=== PATIENT | male | born 1980 | race Caucasian/White ===

== ENCOUNTER 2016-12-22 10:39 | Inpatient (IN) | payer SELFPAY ==
[2016-12-22] VITALS (7 sets, daily range): BP systolic 148–157; BP diastolic 88–103
[~2016-12-22] VITALS: Ht 180.3 cm; Wt 122.5 kg
[2016-12-22] MEDS ORDERED: IV NORMAL SALINE 1,000ML 1,000 ML IV ONE ×2 (11:45→14:30)
[2016-12-22 12:27] LABS: HEMATOCRIT 51.2 % (39.0-53.0); HEMOGLOBIN 17.7 g/dL (13.0-17.5); RED BLOOD COUNT 5.65 x10^6/uL (4.30-5.70); RED CELL DISTRIBUTION WIDTH 12.9 % (11.5-14.5); WHITE BLOOD COUNT 13.9 x10^3/uL (4.0-11.0)
[2016-12-22 12:45] LABS: ALBUMIN 4.5 g/dL (3.4-5.0); CALCIUM 9.2 mg/dL (8.5-10.1); CREATININE 2.9 mg/dL (0.7-1.3); POTASSIUM 3.3 mmol/L (3.5-5.1)
[2016-12-22] MEDS ORDERED: ONDANSETRON PF 4 MG/2 ML VIAL. IV ONE (13:00)
[2016-12-22 13:07] LABS: BASO % 0 % (0-3); EOS % 0 % (0-3); HEMATOCRIT 50.5 % (39.0-53.0); HEMOGLOBIN 17.7 g/dL (13.0-17.5); LYMPH # 0.8 x10^3/uL (1.0-4.8); LYMPH % 7 % (24-48); MEAN CORPUSCULAR HEMOGLOBIN 31 pg (25-35); MEAN CORPUSCULAR HGB CONC 35 g/dL (31-37); MEAN CORPUSCULAR VOLUME 90 fL (79-100); MONO # 0.8 x10^3/uL (0.0-1.1); MONO % 7 % (0-9); NEUT % 86 % (31-73); PLATELET COUNT 178 x10^3/uL (140-400); RED BLOOD COUNT 5.62 x10^6/uL (4.30-5.70); RED CELL DISTRIBUTION WIDTH 12.9 % (11.5-14.5); WHITE BLOOD COUNT 11.6 x10^3/uL (4.0-11.0)
--- NOTE | 2016-12-22 13:29 | PHYS DOC ---
Past History Past Medical History: Anxiety, Depression, Hypertension, Other Past Surgical History: No Surgical History Alcohol Use: None Drug Use: Methamphetamine Adult General Chief Complaint Chief Complaint: NAUSEA/VOMITING/DIARRHEA HPI HPI Patient is a 36 year old M who presents with nausea/vomiting/diarrhea. Olvin states that after being released from [facility] 4 days ago he began using her what he called us a significant amount of meth IV. He has had vomiting and/or dry heaves over the past 3 days. He states that he has been extremely sweaty, had palpitations, and feels much more anxiety. He notes decreased urination over the past several days. He has not urinated in the last 18 hours. Review of Systems Review of Systems Constitutional: Negative except history of present illness Eyes: Denies change in visual acuity, redness, or eye pain [] HENT: Denies nasal congestion or sore throat [] Respiratory: Denies cough or shortness of breath [] Cardiovascular: No additional information not addressed in HPI [] GI: Denies abdominal pain, nausea, vomiting, bloody stools or diarrhea [] : Negative except history of present illness Musculoskeletal: Denies back pain or joint pain [] Integument: Denies rash or skin lesions [] Neurologic: Denies headache, focal weakness or sensory changes [] Endocrine: Denies polyuria or polydipsia [] Family History Family History Noncontributory Current Medications Current Medications Current Medications Medications (Trade) Dose Ordered Sig/Daniel Start Time Stop Time Status Last Admin Dose Admin Ondansetron HCl (Zofran) 4 mg 1X ONCE 12/22/16 13:00 12/22/16 13:01 DC 12/22/16 12:50 4 MG Sodium Chloride 1,000 ml @ 1,000 mls/hr 1X ONCE 12/22/16 11:45 12/22/16 12:44 DC 12/22/16 12:45 1,000 MLS/HR Allergies Allergies Allergies Coded Allergies Type Severity Reaction Last Updated Verified No Known Drug Allergies 12/22/16 No Physical Exam Physical Exam Constitutional: Well developed, well nourished, anxious appearing, diaphoretic HENT: Normocephalic, atraumatic, bilateral external ears normal, oropharynx moist, no oral exudates, nose normal. [] Eyes: PERRLA, EOMI, conjunctiva normal, no discharge. [] Neck: Normal range of motion, no tenderness, supple, no stridor. [] Cardiovascular: Tachycardic regular rhythm, no murmur [] Lungs & Thorax: Bilateral breath sounds clear to auscultation [] Abdomen: Bowel sounds normal, soft, no tenderness, no masses, no pulsatile masses. [] Skin: Warm, dry, no erythema, no rash. [] Back: No tenderness, no CVA tenderness. [] Extremities: No tenderness, no cyanosis, no clubbing, ROM intact, no edema. [] Neurologic: Alert and oriented X 3, normal motor function, normal sensory function, no focal deficits noted. [] Psychologic: Affect normal, judgement normal, mood normal. [] Current Patient Data Vital Signs Vital Signs Date Time Temp Pulse Resp B/P (MAP) Pulse Ox O2 Delivery O2 Flow Rate FiO2 12/22/16 10:45 97.6 119 24 97 Room Air Lab Results Laboratory Tests Test 12/22/16 12:15 12/22/16 12:40 White Blood Count 13.9 x10^3/uL (4.0-11.0) H 11.6 x10^3/uL (4.0-11.0) H Red Blood Count 5.65 x10^6/uL (4.30-5.70) 5.62 x10^6/uL (4.30-5.70) Hemoglobin 17.7 g/dL (13.0-17.5) H 17.7 g/dL (13.0-17.5) H Hematocrit 51.2 % (39.0-53.0) 50.5 % (39.0-53.0) Mean Corpuscular Volume 91 fL (79-100) 90 fL (79-100) Mean Corpuscular Hemoglobin 31 pg (25-35) 31 pg (25-35) Mean Corpuscular Hemoglobin Concent 35 g/dL (31-37) 35 g/dL (31-37) Red Cell Distribution Width 12.9 % (11.5-14.5) 12.9 % (11.5-14.5) Platelet Count 169 x10^3/uL (140-400) 178 x10^3/uL (140-400) Sodium Level 131 mmol/L (136-145) L Potassium Level 3.3 mmol/L (3.5-5.1) L Chloride Level 92 mmol/L (98-107) L Carbon Dioxide Level 25 mmol/L (21-32) Anion Gap 14 (6-14) Blood Urea Nitrogen 34 mg/dL (8-26) H Creatinine 2.9 mg/dL (0.7-1.3) H Estimated GFR (Cockcroft-Gault) 25.0 BUN/Creatinine Ratio 12 (6-20) Glucose Level 107 mg/dL (70-99) H Calcium Level 9.2 mg/dL (8.5-10.1) Total Bilirubin 2.0 mg/dL (0.2-1.0) H Aspartate Amino Transferase (AST) 1351 U/L (15-37) H Alanine Aminotransferase (ALT) 460 U/L (16-63) H Alkaline Phosphatase 50 U/L (46-116) Total Protein 9.0 g/dL (6.4-8.2) H Albumin 4.5 g/dL (3.4-5.0) Albumin/Globulin Ratio 1.0 (1.0-1.7) Neutrophils (%) (Auto) 86 % (31-73) H Lymphocytes (%) (Auto) 7 % (24-48) L Monocytes (%) (Auto) 7 % (0-9) Eosinophils (%) (Auto) 0 % (0-3) Basophils (%) (Auto) 0 % (0-3) Neutrophils # (Auto) 10.0 x10^3uL (1.8-7.7) H Lymphocytes # (Auto) 0.8 x10^3/uL (1.0-4.8) L Monocytes # (Auto) 0.8 x10^3/uL (0.0-1.1) Eosinophils # (Auto) 0.0 x10^3/uL (0.0-0.7) Basophils # (Auto) 0.0 x10^3/uL (0.0-0.2) EKG EKG Sinus tach [] Radiology/Procedures Radiology/Procedures [] Course & Med Decision Making Course & Med Decision Making Pertinent Labs and Imaging studies reviewed. (See chart for details) [] Dragon Disclaimer Dragon Disclaimer This chart was dictated in whole or in part using Voice Recognition software in a busy, high-work load, and often noisy Emergency Department environment. It may contain unintended and wholly unrecognized errors or omissions. Departure Departure: Impression: Primary Impression: Rhabdomyolysis Additional Impressions: Acute kidney injury Acute hepatitis C Disposition: ADMITTED INPATIENT Condition: STABLE Referrals: PCP,NO (PCP) Problem Qualifiers Primary Impression: Rhabdomyolysis Rhabdomyolysis type: non-traumatic Qualified Codes: M62.82 - Rhabdomyolysis Additional Impressions: Acute hepatitis C Hepatic coma status: without hepatic coma Qualified Codes: B17.10 - Acute hepatitis C without hepatic coma LACHO KANG MD Dec 22, 2016 13:29
[2016-12-22] MEDS ORDERED: FAMOTIDINE 20 MG TABLET PO ONE (14:15)
[2016-12-22] MEDS ORDERED: RISP1TAB43 PO (14:46)
[2016-12-22] MEDS ORDERED: MIRT30TA PO (14:47)
[2016-12-22] MEDS ORDERED: PROP20TA PO (14:47)
[2016-12-22] MEDS ORDERED: 0.9 % SODIUM CHLORIDE 10 ML DISP.SYRIN. IV PRN (15:15)
[2016-12-22] MEDS ORDERED: ELECTROLYTE (NON-ICU) PROTOCOL MC PRN (15:15)
[2016-12-22] MEDS ORDERED: ONDANSETRON PF 4 MG/2 ML VIAL. IV PRN (15:15)
[2016-12-22] MEDS: IV NORMAL SALINE 1,000ML 1,000 ML IV SCH ×2 (15:24→20:33)
[2016-12-22] MEDS ORDERED: POTASSIUM CHLORIDE 20 MEQ TABLET.ER. PO ONE (15:30)
--- NOTE | 2016-12-22 15:41 | PDOC1 ---
History of Present Illness Reason for Visit: Muscle cramps History of Present Illness Pt states he was shopping at [email or web address] today when he started to have severe muscle spasms, so bad that he thought he was going to be sick. He had to sit down and rest. Pt reports he was in nursing home til about 4 days ago, and while in nursing home he received medications for PTSD including Risperdal, Propranolol, and Remeron. Unfortunately, he was not given any prescriptions when he was released , and he went to abuse methamphetamines instead. He had done this for the past 3 days. He reports he has done this in the past, and it helps but "comes back around tenfold." He states he already feels like the fluids are working, because his muscles feel less crampy. He says he has not urinated since yesterday, even if he tries to force himself. Denies fever, but has had n/v. Denies any recent injuries, muscle or otherwise. Chief Complaint: NAUSEA/VOMITING/DIARRHEA Allergies: Coded Allergies: No Known Drug Allergies (Unverified , 12/22/16) Past Medical History Psych: Other (PTSD) Past Surgical History: No pertinent history Family History: No pertinent hx Past Social History Smoke: No Alcohol: none Drugs: Crystal meth Lives: Alone Review of Systems Review Of Systems Fourteen system , review of systems has been reviewed. See HPI for pertinent positives and negative responses, other monge all other systems are negative, non pertinent or non contributory Constitutional: No: Fever, Chills, Sweats, Weakness, Malaise, Other Eyes: No: Blurry vision, Decreased vision, Double vision, Dry eyes, Excessive tearing, Eye Pain, Itchy Eyes, Loss of vision, Photophobia, Scotomata, Uses contacts, Uses glasses ENT: No: Ear pain, Ear discharge, Nose pain, Nose discharge, Nose congestion, Mouth pain, Mouth swelling, Throat pain, Throat swelling Respiratory: No: Cough, Hemoptysis, Orthopnea, Pleuritic Pain, Shortness of breath, SOB with excertion, Sputum Changes, Stridor, Tachypnea, Wheezing Cardiovascular: No: Chest Pain, Palpitations, Orthopnea, Paroxysmal Noc. Dyspnea, Edema, Lt Headedness Gastrointestinal: YES: Nausea, Vomiting, No: Abdominal Pain, Diarrhea, Constipation, Melena, Hematochezia Genitourinary: No: Change in Menstrual Cycle, Dysmenorrhea, Dyspareunia, Dysuria, Flank Pain, Genital Discharge, Genital Ulcers, Henaturia, Incontinence , Irregular/heavy Menses, Nocturia, Pelvic Pain, Scrotal Mass/pain, Slowing Urinary Stream, Urinary Frequency/urgency, Vulvar/vaginal Symptoms Musculoskeletal: YES: Muscle Pain, No: Gait Disturbance, Joint Pain, Joint Stiffness, Joint Swelling, Muscular Weakness, Pain In:, Swelling In: SKIN: YES: Warm, Dry, No Rashes, No: Cool, Diaphoretic, Cyanotic, Rash Neurological: No: Behavorial Changes, Bowel/Bladder ControlChng, Confusion, Dizziness, Gait Disturbance, Headaches, Impaired Coord/balance, Memory Loss, Numbness/Tingling, Seizures, Speech Problems, Tremors, Visual Changes, Weakness Allergies: Coded Allergies: No Known Drug Allergies (Unverified , 12/22/16) Medications Current Medications Sodium Chloride 1,000 ml @ 1,000 mls/hr 1X ONCE IV Last administered on 12:45; Start 12/22/16 at 11:45; Stop 12/22/16 at 12:44; Status DC Ondansetron HCl (Zofran) 4 mg 1X ONCE IV Last administered on 12/22/16 12:50 ; Start 12/22/16 at 13:00; Stop 12/22/16 at 13:01; Status DC Famotidine (Pepcid) 20 mg 1X ONCE PO ; Start 12/22/16 at 14:15; Stop 12/22/16 at 14:16; Status DC Sodium Chloride 1,000 ml @ 1,000 mls/hr 1X ONCE IV Last administered on 14:10; Start 12/22/16 at 14:30; Stop 12/22/16 at 15:29 Potassium Chloride (Klor-Con) 20 meq 1X ONCE PO ; Start 12/22/16 at 15:30; Stop 12/22/16 at 15:31 Sodium Chloride 1,000 ml @ 200 mls/hr Q5H IV ; Start 12/22/16 at 15:00 Sodium Chloride (Normal Saline Flush) 3 ml PRN DAILY PRN IV AFTER MEDS AND BLOOD DRAWS; Start 12/22/16 at 15:15 Info 1 ea CONT PRN PRN MC SEE COMMENTS; Start 12/22/16 at 15:15 Ondansetron HCl (Zofran) 4 mg PRN Q8HRS PRN IV NAUSEA/VOMITING; Start 12/22/16 at 15:15 Mirtazapine (Remeron) 30 mg QHS PO ; Start 12/22/16 at 21:00 Risperidone (RisperDAL) 1 mg BID PO ; Start 12/22/16 at 21:00 Famotidine (Pepcid) 20 mg BID PO ; Start 12/22/16 at 21:00 Active Scripts Active Reported Remeron (Mirtazapine) 30 Mg Tablet 1 Tab PO QHS Propranolol Hcl 20 Mg Tablet 1 Tab PO BID Risperdal (Risperidone) 1 Mg Tablet 1 Tab PO BID Exam Vital Signs Vital Signs Date Time Temp Pulse Resp B/P (MAP) Pulse Ox O2 Delivery O2 Flow Rate FiO2 12/22/16 14:00 107 18 89/67 (74) 97 Room Air 12/22/16 10:45 97.6 General Appearance: Alert, Oriented X3, Cooperative, No acute distress HEENT: Atraumatic, PERRLA, EOMI, Mucous membr. moist/pink, Other (Neck supple, full ROM, no JVD, no LAD, no thyromegaly) Respiratory: Clear to auscultation, Normal air movement Heart: Regular rate, Normal S1, Normal S2, No murmurs Abdominal: Normal bowel sounds, Soft, No tenderness, No hepatospenomegaly, No masses Extremities: No edema, Normal pulses, No tenderness/swelling Skin: No rashes, No breakdown Neuro: Normal speech, Strength at 5/5 X4 ext, Normal tone, Sensation intact, Cranial nerves 3-12 NL, Reflexes 2+ Psych/Mental Status: Mental status NL, Mood NL Assessment/Plan Assessment/Plan 1. Acute kidney injury: Creat 2.9, no baseline available. Pt without urine output since yesterday, but states he might be able to urinate now. 412 cc on bladder scan. Will continue to push IVF. Check BMP q 4 hrs until solid resolution noted. 2. Rhabdomyolysis: Likely due to meth ingestion. Check phos, tox screen, UA. IVF. If worse will need transfer to [facility]. Clear liquid diet due to N/V. 3. Hypokalemia: 20 meq KCL PO x 1. Monitor BMP's. 4. PTSD: Resume home meds. COnsult psychiatry. 5. DVT proph: Ambulate TID. COURSE Allergies Coded Allergies Type Severity Reaction Last Updated Verified No Known Drug Allergies 12/22/16 No Laboratory Tests Test 12/22/16 12:15 12/22/16 12:40 White Blood Count 13.9 x10^3/uL (4.0-11.0) 11.6 x10^3/uL (4.0-11.0) Red Blood Count 5.65 x10^6/uL (4.30-5.70) 5.62 x10^6/uL (4.30-5.70) Hemoglobin 17.7 g/dL (13.0-17.5) 17.7 g/dL (13.0-17.5) Hematocrit 51.2 % (39.0-53.0) 50.5 % (39.0-53.0) Mean Corpuscular Volume 91 fL (79-100) 90 fL (79-100) Mean Corpuscular Hemoglobin 31 pg (25-35) 31 pg (25-35) Mean Corpuscular Hemoglobin Concent 35 g/dL (31-37) 35 g/dL (31-37) Red Cell Distribution Width 12.9 % (11.5-14.5) 12.9 % (11.5-14.5) Platelet Count 169 x10^3/uL (140-400) 178 x10^3/uL (140-400) Sodium Level 131 mmol/L (136-145) Potassium Level 3.3 mmol/L (3.5-5.1) Chloride Level 92 mmol/L (98-107) Carbon Dioxide Level 25 mmol/L (21-32) Anion Gap 14 (6-14) Blood Urea Nitrogen 34 mg/dL (8-26) Creatinine 2.9 mg/dL (0.7-1.3) Estimated GFR (Cockcroft-Gault) 25.0 BUN/Creatinine Ratio 12 (6-20) Glucose Level 107 mg/dL (70-99) Calcium Level 9.2 mg/dL (8.5-10.1) Total Bilirubin 2.0 mg/dL (0.2-1.0) Aspartate Amino Transf (AST/SGOT) 1351 U/L (15-37) Alanine Aminotransferase (ALT/SGPT) 460 U/L (16-63) Alkaline Phosphatase 50 U/L (46-116) Creatine Kinase 55633 U/L (39-308) Total Protein 9.0 g/dL (6.4-8.2) Albumin 4.5 g/dL (3.4-5.0) Albumin/Globulin Ratio 1.0 (1.0-1.7) Neutrophils (%) (Auto) 86 % (31-73) Lymphocytes (%) (Auto) 7 % (24-48) Monocytes (%) (Auto) 7 % (0-9) Eosinophils (%) (Auto) 0 % (0-3) Basophils (%) (Auto) 0 % (0-3) Neutrophils # (Auto) 10.0 x10^3uL (1.8-7.7) Lymphocytes # (Auto) 0.8 x10^3/uL (1.0-4.8) Monocytes # (Auto) 0.8 x10^3/uL (0.0-1.1) Eosinophils # (Auto) 0.0 x10^3/uL (0.0-0.7) Basophils # (Auto) 0.0 x10^3/uL (0.0-0.2) Current Medications Medications (Trade) Dose Ordered Sig/Daniel Route PRN Reason Start Time Stop Time Status Last Admin Dose Admin Sodium Chloride 1,000 ml @ 1,000 mls/hr 1X ONCE IV 12/22/16 11:45 12/22/16 12:44 DC 12/22/16 12:45 Ondansetron HCl (Zofran) 4 mg 1X ONCE IV 12/22/16 13:00 12/22/16 13:01 DC 12/22/16 12:50 Famotidine (Pepcid) 20 mg 1X ONCE PO 12/22/16 14:15 12/22/16 14:16 DC Sodium Chloride 1,000 ml @ 1,000 mls/hr 1X ONCE IV 12/22/16 14:30 12/22/16 15:29 12/22/16 14:10 Potassium Chloride (Klor-Con) 20 meq 1X ONCE PO 12/22/16 15:30 12/22/16 15:31 Sodium Chloride 1,000 ml @ 200 mls/hr Q5H IV 12/22/16 15:00 Sodium Chloride (Normal Saline Flush) 3 ml PRN DAILY PRN IV AFTER MEDS AND BLOOD DRAWS 12/22/16 15:15 Info 1 ea CONT PRN PRN MC SEE COMMENTS 12/22/16 15:15 Ondansetron HCl (Zofran) 4 mg PRN Q8HRS PRN IV NAUSEA/VOMITING 12/22/16 15:15 Mirtazapine (Remeron) 30 mg QHS PO 12/22/16 21:00 Risperidone (RisperDAL) 1 mg BID PO 12/22/16 21:00 Famotidine (Pepcid) 20 mg BID PO 12/22/16 21:00 Vital Signs Date Time Temp Pulse Resp B/P (MAP) Pulse Ox O2 Delivery O2 Flow Rate FiO2 12/22/16 14:00 107 18 89/67 (74) 97 Room Air 12/22/16 10:45 97.6 SANJUANITA MCGOWAN MD Dec 22, 2016 15:41
[2016-12-22 16:19] LABS: AMPHETAMINE/METHAMPHETAMINE POS (NEG); BARBITURATES NEG (NEG); BENZODIAZEPINES NEG (NEG); CANNABINOIDS NEG (NEG); COCAINE NEG (NEG); METHADONE POS (NEG); OPIATES NEG (NEG); PHENCYCLIDINE NEG (NEG)
[2016-12-22 16:27] LABS: CALCIUM 7.8 mg/dL (8.5-10.1); GFR 38.4; POTASSIUM 3.8 mmol/L (3.5-5.1)
[2016-12-22 16:31] LABS: URIC ACID 8.8 mg/dL (3.5-7.2)
[2016-12-22 16:49] LABS: CLARITY,URINE CLOUDY; COLOR,URINE YELLOW
[2016-12-22 16:50] LABS: BACTERIA,URINE FEW /HPF (0-FEW); BILIRUBIN,URINE NEG (NEG); GLUCOSE,URINE NEG (NEG); NITRITE,URINE NEG (NEG); RBC,URINE OCC /HPF (0-2); UROBILINOGEN,URINE 0.2 mg/dL (0.2 mg/dL); WBC,URINE 20-40 /HPF (0-4)
[2016-12-22 16:51] LABS: GRANULAR CASTS,URINE MOD /HPF; HYALINE CASTS, URINE MOD /HPF
[2016-12-22 20:17] LABS: CREATININE 1.8 mg/dL (0.7-1.3); GFR 43.4; POTASSIUM 3.6 mmol/L (3.5-5.1)
[2016-12-22] MEDS: MIRTAZAPINE 30 MG TABLET PO SCH (22:26)
[2016-12-22] MEDS: PROPRANOLOL 20 MG TABLET. PO SCH (22:26)
[2016-12-22] MEDS: FAMOTIDINE 20 MG TABLET PO SCH (22:26)
[2016-12-22] MEDS: risperiDONE 1 MG TABLET. PO SCH (22:26)
--- NOTE | 2016-12-22 23:07 | PDOC ---
Exam Urbano Demential Exam: [place]ano Note: Please also refer to the separate dictated note~for this date of service dictated separately.~Patient seen individually. Discussed the patient with Nursing staff reviewed the chart.~Reviewed interim history and current functioning. Reviewed vital signs,~Labs/ Radiology~and current medications noted below. Continue current treatment with the changes noted in the dictated addendum note Assessment: Vital Signs: Vital Signs Date Time Temp Pulse Resp B/P (MAP) Pulse Ox O2 Delivery O2 Flow Rate FiO2 12/22/16 22:34 114 156/88 (110) 97 Room Air 12/22/16 19:44 100.2 12/22/16 18:19 20 Labs: Laboratory Tests Test 12/22/16 12:15 12/22/16 12:40 12/22/16 15:34 12/22/16 16:08 White Blood Count 13.9 x10^3/uL (4.0-11.0) H 11.6 x10^3/uL (4.0-11.0) H Red Blood Count 5.65 x10^6/uL (4.30-5.70) 5.62 x10^6/uL (4.30-5.70) Hemoglobin 17.7 g/dL (13.0-17.5) H 17.7 g/dL (13.0-17.5) H Hematocrit 51.2 % (39.0-53.0) 50.5 % (39.0-53.0) Mean Corpuscular Volume 91 fL (79-100) 90 fL (79-100) Mean Corpuscular Hemoglobin 31 pg (25-35) 31 pg (25-35) Mean Corpuscular Hemoglobin Concent 35 g/dL (31-37) 35 g/dL (31-37) Red Cell Distribution Width 12.9 % (11.5-14.5) 12.9 % (11.5-14.5) Platelet Count 169 x10^3/uL (140-400) 178 x10^3/uL (140-400) Sodium Level 131 mmol/L (136-145) L 129 mmol/L (136-145) L Potassium Level 3.3 mmol/L (3.5-5.1) L 3.8 mmol/L (3.5-5.1) # Chloride Level 92 mmol/L (98-107) L 95 mmol/L (98-107) L Carbon Dioxide Level 25 mmol/L (21-32) 22 mmol/L (21-32) Anion Gap 14 (6-14) 12 (6-14) Blood Urea Nitrogen 34 mg/dL (8-26) H 31 mg/dL (8-26) H Creatinine 2.9 mg/dL (0.7-1.3) H 2.0 mg/dL (0.7-1.3) H Estimated GFR (Cockcroft-Gault) 25.0 38.4 BUN/Creatinine Ratio 12 (6-20) Glucose Level 107 mg/dL (70-99) H 154 mg/dL (70-99) H Calcium Level 9.2 mg/dL (8.5-10.1) 7.8 mg/dL (8.5-10.1) #L Total Bilirubin 2.0 mg/dL (0.2-1.0) H Aspartate Amino Transferase (AST) 1351 U/L (15-37) H Alanine Aminotransferase (ALT) 460 U/L (16-63) H Alkaline Phosphatase 50 U/L (46-116) Creatine Kinase 41505 U/L (39-308) H Total Protein 9.0 g/dL (6.4-8.2) H Albumin 4.5 g/dL (3.4-5.0) Albumin/Globulin Ratio 1.0 (1.0-1.7) Neutrophils (%) (Auto) 86 % (31-73) H Lymphocytes (%) (Auto) 7 % (24-48) L Monocytes (%) (Auto) 7 % (0-9) Eosinophils (%) (Auto) 0 % (0-3) Basophils (%) (Auto) 0 % (0-3) Neutrophils # (Auto) 10.0 x10^3uL (1.8-7.7) H Lymphocytes # (Auto) 0.8 x10^3/uL (1.0-4.8) L Monocytes # (Auto) 0.8 x10^3/uL (0.0-1.1) Eosinophils # (Auto) 0.0 x10^3/uL (0.0-0.7) Basophils # (Auto) 0.0 x10^3/uL (0.0-0.2) Urine Collection Type Unknown Urine Color Yellow Urine Clarity Cloudy Urine pH 5.0 Urine Specific [place] 1.025 Urine Protein 100 mg/dl (NEG-TRACE) Urine Glucose (UA) Neg mg/dL (NEG) Urine Ketones (Stick) 15 mg/dL (NEG) Urine Blood Large (NEG) Urine Nitrite Neg (NEG) Urine Bilirubin Neg (NEG) Urine Urobilinogen Dipstick 0.2 mg/dL (0.2 mg/dL) Urine Leukocyte Esterase Neg (NEG) Urine RBC Occ /HPF (0-2) Urine WBC 20-40 /HPF (0-4) Urine Squamous Epithelial Cells None /LPF Urine Bacteria Few /HPF (0-FEW) Urine Cellular Casts Few /HPF Urine Hyaline Casts Mod /HPF Urine Granular Casts Mod /HPF Urine Mucus Mod /LPF Urine Opiates Screen Neg (NEG) Urine Methadone Screen Pos (NEG) Urine Barbiturates Neg (NEG) Urine Phencyclidine Screen Neg (NEG) Urine Amphetamine/Methamphetamine Pos (NEG) Urine Benzodiazepines Screen Neg (NEG) Urine Cocaine Screen Neg (NEG) Urine Cannabinoids Screen Neg (NEG) Urine Ethyl Alcohol Neg (NEG) Uric Acid 8.8 mg/dL (3.5-7.2) H Phosphorus Level 5.0 mg/dL (2.6-4.7) H Test 12/22/16 20:00 Sodium Level 130 mmol/L (136-145) L Potassium Level 3.6 mmol/L (3.5-5.1) Chloride Level 96 mmol/L (98-107) L Carbon Dioxide Level 26 mmol/L (21-32) Anion Gap 8 (6-14) Blood Urea Nitrogen 28 mg/dL (8-26) H Creatinine 1.8 mg/dL (0.7-1.3) H Estimated GFR (Cockcroft-Gault) 43.4 Glucose Level 119 mg/dL (70-99) H Calcium Level 8.0 mg/dL (8.5-10.1) L Current Medications: Meds: Current Medications Sodium Chloride 1,000 ml @ 1,000 mls/hr 1X ONCE IV Last administered on t 12:45; Start 12/22/16 at 11:45; Stop 12/22/16 at 12:44; Status DC Ondansetron HCl (Zofran) 4 mg 1X ONCE IV Last administered on 12/22/16 12:50 ; Start 12/22/16 at 13:00; Stop 12/22/16 at 13:01; Status DC Famotidine (Pepcid) 20 mg 1X ONCE PO Last administered on 12/22/16 15:23; Start 12/22/16 at 14:15; Stop 12/22/16 at 14:16; Status DC Sodium Chloride 1,000 ml @ 1,000 mls/hr 1X ONCE IV Last administered on 14:10; Start 12/22/16 at 14:30; Stop 12/22/16 at 15:29; Status DC Potassium Chloride (Klor-Con) 20 meq 1X ONCE PO Last administered on 15:23; Start 12/22/16 at 15:30; Stop 12/22/16 at 15:31; Status DC Sodium Chloride 1,000 ml @ 200 mls/hr Q5H IV Last administered on 12/22/16 20 :33; Start 12/22/16 at 15:00 Sodium Chloride (Normal Saline Flush) 3 ml PRN DAILY PRN IV AFTER MEDS AND BLOOD DRAWS; Start 12/22/16 at 15:15 Info 1 ea CONT PRN PRN MC SEE COMMENTS; Start 12/22/16 at 15:15 Ondansetron HCl (Zofran) 4 mg PRN Q8HRS PRN IV NAUSEA/VOMITING; Start 12/22/16 at 15:15 Mirtazapine (Remeron) 30 mg QHS PO Last administered on 12/22/16 22:26; Start 12/22/16 at 21:00 Risperidone (RisperDAL) 1 mg BID PO Last administered on 12/22/16 22:26; Start 12/22/16 at 21:00 Famotidine (Pepcid) 20 mg BID PO Last administered on 12/22/16 22:26; Start at 21:00 Propranolol HCl (Inderal) 20 mg BID PO Last administered on 12/22/16 22:26; Start 12/22/16 at 21:00 Active Scripts Active Reported Remeron (Mirtazapine) 30 Mg Tablet 1 Tab PO QHS Propranolol Hcl 20 Mg Tablet 1 Tab PO BID Risperdal (Risperidone) 1 Mg Tablet 1 Tab PO BID Diagnosis: Problems: (1) Acute hepatitis C (2) Rhabdomyolysis (3) Acute kidney injury IWONA RIVERA MD Dec 22, 2016 23:07
[2016-12-23] VITALS (16 sets, daily range): BP systolic 103–143; BP diastolic 59–86
[2016-12-23 00:50] LABS: CREATININE 1.4 mg/dL (0.7-1.3); POTASSIUM 3.7 mmol/L (3.5-5.1)
[2016-12-23] MEDS: IV NORMAL SALINE 1,000ML 1,000 ML IV SCH ×4 (01:26→19:42)
[2016-12-23 04:23] LABS: BASO % 0 % (0-3); EOS % 0 % (0-3); HEMATOCRIT 39.6 % (39.0-53.0); HEMOGLOBIN 13.9 g/dL (13.0-17.5); LYMPH % 10 % (24-48); MEAN CORPUSCULAR HEMOGLOBIN 31 pg (25-35); MEAN CORPUSCULAR HGB CONC 35 g/dL (31-37); MEAN CORPUSCULAR VOLUME 89 fL (79-100); MONO # 1.4 x10^3/uL (0.0-1.1); MONO % 14 % (0-9); NEUT # 7.6 x10^3uL (1.8-7.7); NEUT % 76 % (31-73); PLATELET COUNT 144 x10^3/uL (140-400); RED BLOOD COUNT 4.44 x10^6/uL (4.30-5.70); RED CELL DISTRIBUTION WIDTH 12.6 % (11.5-14.5)
[2016-12-23 04:33] LABS: CALCIUM 7.6 mg/dL (8.5-10.1); CREATININE 1.3 mg/dL (0.7-1.3); GFR 63.2
[2016-12-23 08:40] LABS: CALCIUM 7.9 mg/dL (8.5-10.1); CREATININE 1.2 mg/dL (0.7-1.3); GFR 69.3; POTASSIUM 4.3 mmol/L (3.5-5.1)
[2016-12-23] MEDS: risperiDONE 1 MG TABLET. PO SCH ×2 (08:57→20:16)
[2016-12-23] MEDS: FAMOTIDINE 20 MG TABLET PO SCH ×2 (08:57→20:16)
[2016-12-23] MEDS: PROPRANOLOL 20 MG TABLET. PO SCH ×2 (08:57→20:16)
--- NOTE | 2016-12-23 09:15 | EKG ---
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
[2016-12-23] MEDS: ACETAMINOPHEN 325 MG TABLET PO PRN ×2 (11:34→20:17)
--- NOTE | 2016-12-23 14:22 | PDOC ---
PROGRESS NOTES Diagnosis Problem Problems Medical Problems: (1) Acute hepatitis C Status: Acute (2) Acute kidney injury Status: Acute (3) Rhabdomyolysis Status: Acute Assessment 1. Acute kidney injury: Creat 2.9, no baseline available. Creat now 1.2. Will decrease IVF to 100/hr 2. Rhabdomyolysis: Likely due to meth ingestion. Pt improved, CK down to 35K. Will decrease fluid rate, plan d/c tomorrow if ok. 3. Hypokalemia: Resolved. 4. PTSD: Stable, continue home meds 5. DVT proph: Ambulate TID. 6. Transaminitis: Pt reports hx of Hep C. Will need to f/u on this as an outpatient. Problems: Plan of Care: see other orders Subjective Pt states he is feeling much better today. Denies n/v. Feels tired. No muscle pain. Voiding well, urine more clear per pt. No fevers. No CP or SOA. Denies leg swelling. Objective Vital Signs Date Time Temp Pulse Resp B/P (MAP) Pulse Ox O2 Delivery O2 Flow Rate FiO2 12/23/16 12:06 84 18 134/64 (87) 98 Room Air 12/23/16 10:02 98.8 Intake and Output 12/23/16 07:00 Intake Total 4628 ml Output Total 3670 ml Balance 958 ml Intake Oral 600 ml IV Total 4028 ml Output Urine Total 3670 ml Abdomen: Normal bowel sounds, Soft, No tenderness Heart: Regular rate, Normal S1, Normal S2, No murmurs Extremities: No edema General: Alert, Oriented X3, Cooperative, No acute distress Lungs: Clear to auscultation, Normal air movement Neck: No JVD Neuro: Strength at 5/5 X4 ext, Normal tone Psych/Mental Status: Mental status NL, Mood NL Skin: No rashes Review of Relevant I have reviewed the following items lakisha (where applicable) has been applied. Labs Laboratory Tests Test 12/22/16 12:15 12/22/16 12:40 12/22/16 15:34 12/22/16 16:08 White Blood Count 13.9 x10^3/uL (4.0-11.0) 11.6 x10^3/uL (4.0-11.0) Red Blood Count 5.65 x10^6/uL (4.30-5.70) 5.62 x10^6/uL (4.30-5.70) Hemoglobin 17.7 g/dL (13.0-17.5) 17.7 g/dL (13.0-17.5) Hematocrit 51.2 % (39.0-53.0) 50.5 % (39.0-53.0) Mean Corpuscular Volume 91 fL (79-100) 90 fL (79-100) Mean Corpuscular Hemoglobin 31 pg (25-35) 31 pg (25-35) Mean Corpuscular Hemoglobin Concent 35 g/dL (31-37) 35 g/dL (31-37) Red Cell Distribution Width 12.9 % (11.5-14.5) 12.9 % (11.5-14.5) Platelet Count 169 x10^3/uL (140-400) 178 x10^3/uL (140-400) Sodium Level 131 mmol/L (136-145) 129 mmol/L (136-145) Potassium Level 3.3 mmol/L (3.5-5.1) 3.8 mmol/L (3.5-5.1) Chloride Level 92 mmol/L (98-107) 95 mmol/L (98-107) Carbon Dioxide Level 25 mmol/L (21-32) 22 mmol/L (21-32) Anion Gap 14 (6-14) 12 (6-14) Blood Urea Nitrogen 34 mg/dL (8-26) 31 mg/dL (8-26) Creatinine 2.9 mg/dL (0.7-1.3) 2.0 mg/dL (0.7-1.3) Estimated GFR (Cockcroft-Gault) 25.0 38.4 BUN/Creatinine Ratio 12 (6-20) Glucose Level 107 mg/dL (70-99) 154 mg/dL (70-99) Calcium Level 9.2 mg/dL (8.5-10.1) 7.8 mg/dL (8.5-10.1) Total Bilirubin 2.0 mg/dL (0.2-1.0) Aspartate Amino Transf (AST/SGOT) 1351 U/L (15-37) Alanine Aminotransferase (ALT/SGPT) 460 U/L (16-63) Alkaline Phosphatase 50 U/L (46-116) Creatine Kinase 50876 U/L (39-308) Total Protein 9.0 g/dL (6.4-8.2) Albumin 4.5 g/dL (3.4-5.0) Albumin/Globulin Ratio 1.0 (1.0-1.7) Neutrophils (%) (Auto) 86 % (31-73) Lymphocytes (%) (Auto) 7 % (24-48) Monocytes (%) (Auto) 7 % (0-9) Eosinophils (%) (Auto) 0 % (0-3) Basophils (%) (Auto) 0 % (0-3) Neutrophils # (Auto) 10.0 x10^3uL (1.8-7.7) Lymphocytes # (Auto) 0.8 x10^3/uL (1.0-4.8) Monocytes # (Auto) 0.8 x10^3/uL (0.0-1.1) Eosinophils # (Auto) 0.0 x10^3/uL (0.0-0.7) Basophils # (Auto) 0.0 x10^3/uL (0.0-0.2) Urine Collection Type Unknown Urine Color Yellow Urine Clarity Cloudy Urine pH 5.0 Urine Specific [place] 1.025 Urine Protein 100 mg/dl (NEG-TRACE) Urine Glucose (UA) Neg mg/dL (NEG) Urine Ketones (Stick) 15 mg/dL (NEG) Urine Blood Large (NEG) Urine Nitrite Neg (NEG) Urine Bilirubin Neg (NEG) Urine Urobilinogen Dipstick 0.2 mg/dL (0.2 mg/dL) Urine Leukocyte Esterase Neg (NEG) Urine RBC Occ /HPF (0-2) Urine WBC 20-40 /HPF (0-4) Urine Squamous Epithelial Cells None /LPF Urine Bacteria Few /HPF (0-FEW) Urine Cellular Casts Few /HPF Urine Hyaline Casts Mod /HPF Urine Granular Casts Mod /HPF Urine Mucus Mod /LPF Urine Opiates Screen Neg (NEG) Urine Methadone Screen Pos (NEG) Urine Barbiturates Neg (NEG) Urine Phencyclidine Screen Neg (NEG) Urine Amphetamine/Methamphetamine Pos (NEG) Urine Benzodiazepines Screen Neg (NEG) Urine Cocaine Screen Neg (NEG) Urine Cannabinoids Screen Neg (NEG) Urine Ethyl Alcohol Neg (NEG) Uric Acid 8.8 mg/dL (3.5-7.2) Phosphorus Level 5.0 mg/dL (2.6-4.7) Test 12/22/16 20:00 12/23/16 00:25 12/23/16 04:10 12/23/16 08:09 Sodium Level 130 mmol/L (136-145) 133 mmol/L (136-145) 133 mmol/L (136-145) 133 mmol/L (136-145) Potassium Level 3.6 mmol/L (3.5-5.1) 3.7 mmol/L (3.5-5.1) 4.0 mmol/L (3.5-5.1) 4.3 mmol/L (3.5-5.1) Chloride Level 96 mmol/L (98-107) 99 mmol/L (98-107) 99 mmol/L (98-107) 100 mmol/L (98-107) Carbon Dioxide Level 26 mmol/L (21-32) 25 mmol/L (21-32) 28 mmol/L (21-32) 28 mmol/L (21-32) Anion Gap 8 (6-14) 9 (6-14) 6 (6-14) 5 (6-14) Blood Urea Nitrogen 28 mg/dL (8-26) 21 mg/dL (8-26) 20 mg/dL (8-26) 16 mg/dL (8-26) Creatinine 1.8 mg/dL (0.7-1.3) 1.4 mg/dL (0.7-1.3) 1.3 mg/dL (0.7-1.3) 1.2 mg/dL (0.7-1.3) Estimated GFR (Cockcroft-Gault) 43.4 58.0 63.2 69.3 Glucose Level 119 mg/dL (70-99) 119 mg/dL (70-99) 119 mg/dL (70-99) 112 mg/dL (70-99) Calcium Level 8.0 mg/dL (8.5-10.1) 8.0 mg/dL (8.5-10.1) 7.6 mg/dL (8.5-10.1) 7.9 mg/dL (8.5-10.1) White Blood Count 10.0 x10^3/uL (4.0-11.0) Red Blood Count 4.44 x10^6/uL (4.30-5.70) Hemoglobin 13.9 g/dL (13.0-17.5) Hematocrit 39.6 % (39.0-53.0) Mean Corpuscular Volume 89 fL (79-100) Mean Corpuscular Hemoglobin 31 pg (25-35) Mean Corpuscular Hemoglobin Concent 35 g/dL (31-37) Red Cell Distribution Width 12.6 % (11.5-14.5) Platelet Count 144 x10^3/uL (140-400) Neutrophils (%) (Auto) 76 % (31-73) Lymphocytes (%) (Auto) 10 % (24-48) Monocytes (%) (Auto) 14 % (0-9) Eosinophils (%) (Auto) 0 % (0-3) Basophils (%) (Auto) 0 % (0-3) Neutrophils # (Auto) 7.6 x10^3uL (1.8-7.7) Lymphocytes # (Auto) 1.0 x10^3/uL (1.0-4.8) Monocytes # (Auto) 1.4 x10^3/uL (0.0-1.1) Eosinophils # (Auto) 0.0 x10^3/uL (0.0-0.7) Basophils # (Auto) 0.0 x10^3/uL (0.0-0.2) Creatine Kinase 16461 U/L (39-308) Medications Current Medications Sodium Chloride 1,000 ml @ 1,000 mls/hr 1X ONCE IV Last administered on 12:45; Start 12/22/16 at 11:45; Stop 12/22/16 at 12:44; Status DC Ondansetron HCl (Zofran) 4 mg 1X ONCE IV Last administered on 12/22/16 12:50 ; Start 12/22/16 at 13:00; Stop 12/22/16 at 13:01; Status DC Famotidine (Pepcid) 20 mg 1X ONCE PO Last administered on 12/22/16 15:23; Start 12/22/16 at 14:15; Stop 12/22/16 at 14:16; Status DC Sodium Chloride 1,000 ml @ 1,000 mls/hr 1X ONCE IV Last administered on 14:10; Start 12/22/16 at 14:30; Stop 12/22/16 at 15:29; Status DC Potassium Chloride (Klor-Con) 20 meq 1X ONCE PO Last administered on 15:23; Start 12/22/16 at 15:30; Stop 12/22/16 at 15:31; Status DC Sodium Chloride 1,000 ml @ 200 mls/hr Q5H IV Last administered on 12/23/16 11 :12; Start 12/22/16 at 15:00 Sodium Chloride (Normal Saline Flush) 3 ml PRN DAILY PRN IV AFTER MEDS AND BLOOD DRAWS; Start 12/22/16 at 15:15 Info 1 ea CONT PRN PRN MC SEE COMMENTS; Start 12/22/16 at 15:15 Ondansetron HCl (Zofran) 4 mg PRN Q8HRS PRN IV NAUSEA/VOMITING; Start 12/22/16 at 15:15 Mirtazapine (Remeron) 30 mg QHS PO Last administered on 12/22/16 22:26; Start 12/22/16 at 21:00 Risperidone (RisperDAL) 1 mg BID PO Last administered on 12/23/16 08:57; Start 12/22/16 at 21:00 Famotidine (Pepcid) 20 mg BID PO Last administered on 12/23/16 08:57; Start at 21:00 Propranolol HCl (Inderal) 20 mg BID PO Last administered on 12/23/16 08:57; Start 12/22/16 at 21:00 Acetaminophen (Tylenol) 650 mg PRN Q6HRS PRN PO PAIN / TEMP Last administered on 12/23/16 11:34; Start 12/23/16 at 11:30 Active Scripts Active Reported Remeron (Mirtazapine) 30 Mg Tablet 1 Tab PO QHS Propranolol Hcl 20 Mg Tablet 1 Tab PO BID Risperdal (Risperidone) 1 Mg Tablet 1 Tab PO BID Vitals/I & O Vital Sign - Last 24 Hours 12/22/16 12/22/16 12/22/16 12/22/16 14:30 16:00 16:30 17:13 Temp 98.6 Pulse 108 108 112 Resp 20 20 20 B/P (MAP) 148/94 (112) 153/103 (120) 157/100 (119) Pulse Ox 96 96 97 O2 Delivery Room Air Room Air Room Air Room Air 12/22/16 12/22/16 12/22/16 12/22/16 18:19 19:44 19:48 20:00 Temp 100.2 Pulse 107 115 Resp 20 B/P (MAP) 157/98 (117) 154/88 (110) Pulse Ox 96 98 O2 Delivery Room Air Room Air Room Air 12/22/16 12/22/16 12/22/16 12/23/16 21:21 22:26 22:34 00:01 Pulse 118 115 114 B/P (MAP) 151/97 (115) 154/88 156/88 (110) Pulse Ox 97 97 O2 Delivery Room Air Room Air Room Air 12/23/16 12/23/16 12/23/16 12/23/16 00:08 01:08 02:08 03:08 Pulse 108 117 95 87 B/P (MAP) 118/59 (78) 143/85 (104) 132/81 (98) 137/74 (95) Pulse Ox 96 97 94 94 O2 Delivery Room Air Room Air Room Air Room Air 12/23/16 12/23/16 12/23/16 12/23/16 04:00 05:15 06:24 06:34 Temp 98.3 Pulse 87 80 81 Resp 20 20 20 B/P (MAP) 117/79 (92) 134/74 (94) 134/74 (94) Pulse Ox 92 94 93 O2 Delivery Room Air Room Air Room Air Room Air 12/23/16 12/23/16 12/23/16 12/23/16 07:17 08:00 08:17 08:57 Pulse 82 90 89 B/P (MAP) 130/80 (97) 120/66 (84) 134/74 Pulse Ox 94 O2 Delivery Room Air Room Air Room Air 12/23/16 12/23/16 12/23/16 12/23/16 09:17 10:02 10:17 11:04 Temp 98.8 Pulse 90 90 84 B/P (MAP) 119/73 (88) 108/72 (84) 103/65 (78) Pulse Ox 96 97 O2 Delivery Room Air Room Air 12/23/16 12/23/16 12:00 12:06 Pulse 84 Resp 18 B/P (MAP) 134/64 (87) Pulse Ox 98 O2 Delivery Room Air Room Air Intake and Output 12/22/16 12/22/16 12/23/16 15:00 23:00 07:00 Intake Total 1000 ml 1668 ml 1960 ml Output Total 1350 ml 2320 ml Balance 1000 ml 318 ml -360 ml SANJUANITA MCGOWAN MD Dec 23, 2016 14:22
[2016-12-23] MEDS: MIRTAZAPINE 30 MG TABLET PO SCH (20:16)
[2016-12-24] MEDS: IV NORMAL SALINE 1,000ML 1,000 ML IV SCH (03:36)
[2016-12-24 05:15] VITALS: BP 114/66
--- NOTE | 2016-12-24 05:28 | ACF ---
Admit Criteria Forms Admit Criteria Forms Admit Criteria Forms MUSCULOSKELETAL DISEASE GRG Clinical Indications for Admission to Inpatient Care (Place 'X' for any and all applicable criteria): Hospital admission is needed for appropriate care of the patient because of 1 or more of the following: [ ]I. Fracture, dislocation, or other musculoskeletal injury requiring inpatient care(medical) as indicated by 1 or more of the following(4)(5)(6)(7) [ ]a) Vertebral fracture requiring observation for instability or neurologic compromise (8) [ ]b) Compartment syndrome (proven or cannot be ruled out during observation level of care) (9) [ ]c) Limb-threatening injury [ ]d) Major injury requiring inpatient stabilization such as traction initiation or external fixation before internal fixation or closure of complex or open fracture [ ]e) Major injury requiring inpatient treatment after emergency or observation level care (as appropriate) [ ]f) Severe pain requiring acute inpatient management [ ]g) Injury with suspicion of abuse or neglect (eg., child, dependent elderly) [ ]II. Newly diagnosed or suspected bone, joint, or orthopedic device infection (e.g., osteomyelitis, septic arthritis) needing 1 or more of the following(1)(2)(3) [ ]a) IV antibiotics that cannot be initiated in other than inpatient setting (e.g., patient too unstable or home infusion not available) [ ]b) Device removal or replacement [ ]c) Bone or soft tissue debridement [ ]d) Joint drainage (drain placement or repetitive aspirations) [ ]III. Severe rheumatologic disease (e.g., systemic lupus erythematosus, rheumatoid arthritis) with complications or comorbidities (Also use Optimal Recovery Care Criteria or General Recovery Criteria as appropriate on the basis of predominant condition), including 1 or more of the following( 10)(11)(12)(13) [ ]a) Severe infection (e.g., [employer] infection, sepsis) (14) [ ]b) Respiratory complications, including 1 or more of the following : [ ]i) Pleural effusion with respiratory compromise [ ]ii) Pulmonary hypertension with congestive failure [ ]iii) Respiratory failure [ ]iv) Pulmonary hemorrhage (15) [ ]c) Hematologic disease, including 1 or more of the following: [ ]i) Coagulopathy with bleeding [ ]ii) Thrombosis with hypercoagulable state [ ]iii) Thrombotic thrombocytopenic purpura [ ]d) Cerebritis with seizures, psychosis, or other severe abnormalities [ ]e) Vertebral destruction with monitoring needed for cervical myelopathy& possible respiratory compromise [ ]f) Exacerbation that requires inpatient treatment (e.g., intravenous immunosuppression) (16) [ ]g) Acute renal failure [ ]h) Cerebritis with seizures, psychosis, Altered mental status, or other neurologic abnormalities [ ]i) Pericardial effusion with tamponade [ ]j) Vertebral destruction, with monitoring needed for cervical myelopathy and possible respiratory compromise [ ]IV. Severe vasculitis with complications or comorbidities (Also use Optimal Recovery Care Criteria General Recovery Criteria as appropriate on the basis of predominant condition), including 1 or more of the following(11)(12)(17)(18)(19)(20) [ ]a) Exacerbation that requires inpatient treatment (e.g., intravenous immunosuppression) (19)(21) [ ]b) Pulmonary hemorrhage (15) [ ]c) V[employer] vasculitis with seizures, psychosis, Altered mental status that is severe or persistent, or other severe abnormalities (22) [ ]d) Cerebral infarction [ ]e) Gastrointestinal ischemia [ ]f) Gangrene or threatened amputation [ ]g) Renal failure (16) [ ]h) Other significant complications of vasculitis ( eg., tissue or organ ischemia, organ dysfunction ) [ ]V. Severe myopathy as indicated by 1 or more of the following (28)(29) [ ]a) New onset of airway compromise or inability to swallow [ ]b) Respiratory deterioration with observation needed for impending respiratory failure [ ]c) Exacerbation that requires inpatient treatment (e.g., intravenous immunosuppression) [ ]. Severe crystal gout (arthropathy) indicated by 1 or more of the following (23)(24) [ ]a) Severe pain requiring acute inpatient management [ ]b) Exacerbation that requires inpatient treatment (e.g., intravenous treatment) [X]VII.Rhabdomyolysis and 1 or more of the following (25)(26)(27) [ ]a) Acute renal failure [ ]b) Need for intravenous hydration after emergency or observation level care (as appropriate) [ ]c) Inability to maintain oral hydration [ ]d) Change in mental status [X]e) Electrolyte abnormality that remains after emergency or observation level care (as appropriate) [ ]VIII Post amputation complication, as indicated by ANY ONE of the following [ ]a) Infection [ ]b) Dehiscence [ ]c) Myodesis failure [ ]IX. Severe pain requiring acute inpatient management due to musculoskeletal condition [ ]X. Musculoskeletal Disease and ALL of the following: [ ]a) Symptom or finding for which emergency and observation care have failed or are not considered appropriate (Use General Criteria: Observation Care as appropriate) [ ]b) Presence of ANY ONE of the following [ ]i) A General Admission Criteria [ ]ii) A Pediatric General Admission Criteria The original [facility] content created by [facility] has been revised. The portions of the content which have been revised are identified through the use of italic text or in bold, and [facility] has neither reviewed nor approved the modified material. All other unmodified content is copyright [facility]. Please see references footnoted in the original [facility] edition 2016 MAYUR CRAVEN Dec 24, 2016 05:28
[2016-12-24 07:03] LABS: CALCIUM 7.8 mg/dL (8.5-10.1); CREATININE 0.8 mg/dL (0.7-1.3); GFR 110.7; POTASSIUM 3.9 mmol/L (3.5-5.1)
[2016-12-24] MEDS: FAMOTIDINE 20 MG TABLET PO SCH (09:28)
[2016-12-24] MEDS: risperiDONE 1 MG TABLET. PO SCH (09:29)
[2016-12-24] MEDS: PROPRANOLOL 20 MG TABLET. PO SCH (09:29)
[2016-12-24 10:32] VITALS: BP 110/75
[2016-12-24] MEDS ORDERED: DOXY100C2 PO (11:16)
[2016-12-24] MEDS ORDERED: LISI-334 PO (11:23)
--- NOTE | 2016-12-24 23:26 | DS ---
DATE OF DISCHARGE: 12/24/2016 HISTORY OF PRESENT ILLNESS: The patient is a 36-year-old male patient, who was admitted on 12/22/2016 after he started having severe muscle spasms while shopping at [employer] the same day so bad that he thought he was going to be sick, he had to sit down and rest. He stated that he was in group home till about 4 days ago. While in group home, he received medication for his posttraumatic stress disorder including Risperdal, propranolol, and Remeron. Fortunately, he was not given any prescription when he was released. He went to abuse methamphetamines and said he has done this for the past 3 days. He reports he has done this in the past and it helps, but comes back around 10 fold. He states he already feels like the fluids are working because his muscles are ____. He was investigated. He stated that he has not urinated since yesterday, the day before admission when he tries to force himself. Denied any fever, but has had nausea and vomiting. Denied any recent injuries to his muscles otherwise. He was investigated in the Emergency Room and he was found to be in acute kidney injury with a CK of almost 69,000. His serum creatinine was found to be high at 2.9 mg/dL and his BUN was 34. He was started on IV fluid and his kidney function and muscle enzyme has steadily improved. He has no muscle spasm. PHYSICAL EXAMINATION: GENERAL: When I examined him this morning, he looked well and was clearly in no apparent respiratory distress. No pallor, jaundice, cyanosis, or thyromegaly. No jugular venous distension. No limb edema. VITAL SIGNS: His heart rate was 71, blood pressure was 110/75, temperature was 99.2, respiratory rate was 20, and oxygen saturation was 96%. HEAD, EYES, EARS, NOSE, AND THROAT: Showed normocephalic, atraumatic. NECK: Supple. HEART: Showed normal first and second sounds. No gallop, rub, or murmur. CHEST: Clear to auscultation. No crepitation or rhonchi. ABDOMEN: Distended, soft, nontender. No guarding or rigidity. No organomegaly. Hernial orifices are intact. Bowel sounds normal. NEUROLOGIC: He was awake, alert, responding appropriately. Cranial nerves intact. He moves extremities without difficulty, ambulates without assistance or assistive devices. SKIN: Showed that he has an area of induration over the dorsal aspect of the left hand with mild erythema, apparently that was the site of injection. His intake over the last 24 hours was 5866, output was 2200. LABORATORY DATA: His lab work this morning showed a white cell count of 10,000, hemoglobin 14, hematocrit 40, MCV 89, and platelet count 144,000. His chemistry this morning showed a serum sodium of 141, potassium 3.9, chloride 107, bicarbonate 30, anion gap of 4, BUN 11, creatinine 0.8. Estimated GFR was 110 mL per minute. His glucose was 95, calcium was 7.8, and his CK came down to 19,410. His urine culture and sensitivity was unremarkable and showed no growth after 24 hours. DISCHARGE MEDICATIONS: The patient was discharged home to continue on following medications: Doxycycline 100 mg twice a day for 10 days, lisinopril 20 mg once a day, Remeron 30 mg at bedtime, and Risperdal 1 mg twice a day. FINAL DISCHARGE DIAGNOSES: 1. Acute kidney injury, resolved. His creatinine came down from 2.9 to 0.8 mg/dL. 2. Rhabdomyolysis, resolving. His CK came down from 79,000 to 19,000. 3. Hypokalemia, resolved. His most recent serum potassium is 3.9. 4. Posttraumatic stress disorder for which he is on Remeron and Risperdal. 5. Methamphetamine abuse. 6. Apparently, he is also known to have hepatitis C as his bilirubin, AST, ALT are slightly elevated. 7. Cellulitis induration over the dorsal aspect of left hand for which I gave him a prescription for doxycycline. I warned him that this might form an abscess with time. If the doxycycline did not treat the infection, then he might end up needing to have it incised and drained. I also advised him not to take any lisinopril for at least 2 to 3 days and to basically arrange for primary care physician to follow him up. FINESSE ETIENNE MD DR: BIANCA/adelina JOB#: [id number] / [id number]
== END 2016-12-24 12:37 | disposition home or self-care (01) | DRG 683 ==
LOC: ER 10:39 → ICU 13:54 → 1 SOUTH 12-23 16:42
PROVIDERS: ADMIT Family Medicine; ATTEND Family Medicine
DX: N17.9 Acute kidney failure, unspecified (principal); M62.82 Rhabdomyolysis; B17.10 Acute hepatitis C without hepatic coma; L03.114 Cellulitis of left upper limb; E87.6 Hypokalemia; F43.10 Post-traumatic stress disorder, unspecified; F15.10 Other stimulant abuse, uncomplicated; F41.9 Anxiety disorder, unspecified; F32.9 Major depressive disorder, single episode, unspecified; I10 Essential (primary) hypertension
CPT/HCPCS: 36415; 80048; 80053; 80307; 81001; 82550; 84100; 84550; 85025; 85027; 87086; 87641; 93005; 96361; 96374; J2405; 99285-25; G0479; J7030